=== PATIENT | female | born 1995 | race Caucasian/White ===

== ENCOUNTER → 2017-05-20 | Outpatient (CLI) | payer BC, OTHER ==
[2017-05-22 01:58] LABS: CHLAMYDIA TRACH RNA*** NOT DETECTED (NOT DETECTED); GC (NEIS GONORRHOEAE)RNA** NOT DETECTED (NOT DETECTED)
== END | disposition home or self-care (01) ==
LOC: C.LABSPEC 10:43
PROVIDERS: ATTEND Physician Assistant
DX: Z01.419 Encounter for gynecological examination (general) (routine) without abnormal findings (principal)

== ENCOUNTER 2018-01-25 18:06 | Emergency (ER) | payer OTHER ==
[~2018-01-25] VITALS: Ht 172.7 cm; Wt 62.8 kg
[2018-01-25 18:15] VITALS: Ht 172.7 cm; Wt 62.8 kg
[2018-01-25] MEDS ORDERED: ACETAMINOPHEN 500 MG TAB PO STA (19:46)
[2018-01-25] MEDS ORDERED: SODIUM CHLORIDE 0.9% 1000ML 1,000 ML IV STA (19:46)
--- NOTE | 2018-01-25 20:03 | DIAGNOSTIC IMAGING REPORT ---
CHEST ONE VIEW PORTABLE CLINICAL HISTORY: Weakness COMPARISON STUDY: No previous studies for comparison. FINDINGS: The cardiac and mediastinal contours are normal. There is no evidence of focal pulmonary consolidation. There is no evidence of failure. No pleural effusions are visualized.[ IMPRESSION: No active disease in the chest. Electronically signed by: Ivan Shah M.D. 01/25/2018 8:02 PM Dictated Date/Time: 01/25/2018 8:01 PM
[2018-01-25 20:33] LABS: HEMATOCRIT 45.2 % (37-47); HEMOGLOBIN 15.8 g/dL (12.0-16.0); WHITE BLOOD COUNT 6.47 K/uL (4.8-10.8)
[2018-01-25 20:34] LABS: BASO % 0.2 %; BASO ABS # 0.01 K/uL (0-0.2); EOS % 0.3 %; EOS ABS # 0.02 K/uL (0-0.5); IG# 0.03 K/uL (0.00-0.02); LYMPH % 5.3 %; LYMPH ABS # 0.34 K/uL (1.2-3.4); MEAN CELL VOLUME 84.6 fL (80-100); MEAN CORPUSCULAR HEMOGLOBIN 29.6 pg (25-34); MEAN PLATELET VOLUME 10.1 fL (7.4-10.4); MONO % 4.2 %; MONO ABS # 0.27 K/uL (0.11-0.59); NEUT % 89.5 %; PLATELET COUNT 194 K/uL (130-400); RED CELL DISTRIBUTION WIDTH CV 14.6 % (11.5-14.5); RED CELL DISTRIBUTION WIDTH SD 45.1 fL (36.4-46.3)
[2018-01-25 20:54] LABS: ALBUMIN 4.9 gm/dl (3.4-5.0); CALCIUM 9.5 mg/dl (8.5-10.1); CREATININE 1.02 mg/dl (0.60-1.20); POTASSIUM 3.3 mmol/L (3.5-5.1)
[2018-01-25 21:05] LABS: TOTAL PROTEIN 9.4 gm/dl (6.4-8.2)
[2018-01-25 21:14] LABS: INFLUENZA B ANTIGEN Neg for Influ B (NEG)
[2018-01-25 21:32] VITALS: BP 121/70; PULSE 72; O2SAT 97
[2018-01-25 21:46] VITALS: TEMP 37.4
--- NOTE | 2018-01-25 23:02 | EMERGENCY ROOM VISIT NOTE ---
History Report prepared by Lisa: Laura West Under the Supervision of: Dr. Phil Edmondson M.D. First contact with patient: 19:25 Chief Complaint: ILLNESS Stated Complaint: NUMB HANDS, EYES HURT VERY BAD, COLD,WEAK History of Present Illness The patient is a 22 year old female who presents to the Emergency Room with complaints of worsening generalized illness beginning yesterday. She reports eye pain, cough, chills, numbness in her hands, body aches, sorethroat, and nausea. The patient was diagnosed with MAC in her lungs by infectious diseases in [place] about a week and a half ago. The patient reports she was started on Zithromax, Rifabutan, and Ethambutol a week and a half ago. The patient reports she typically gets the flu every flu season. Pt denies LOC, headache, fevers, diaphoresis, visual changes, neck pain, chest pain, breathing difficulties, vomiting, abdominal pain, back pain, melena, hematochezia, urinary symptoms, weakness, lymphadenopathy, rash, or other complaints. Source of History: patient Onset: yesterday Position: other (generalized) Quality: other (illness) Timing: worsening Associated Symptoms: + chills, + sorethroat, + cough, + nausea, + numbness Review of Systems See HPI for pertinent positives and negatives. A total of ten systems were reviewed and were otherwise negative. Past Medical & Surgical Medical Problems: (1) Mycobacterium avium infection Social History Smoking Status: Never Smoker Marital Status: single Occupation Status: employed Allergies Coded Allergies: Oxycodone (Verified Allergy, Unknown, syncope, 01/25/18) Physical Exam Vital Signs Date Time Temp Pulse Resp B/P (MAP) Pulse Ox O2 Delivery O2 Flow Rate FiO2 01/25/18 21:46 37.4 01/25/18 21:32 36.9 72 121/70 97 Room Air 01/25/18 18:15 37.8 148 22 143/82 97 Room Air Physical Exam GENERAL: Awake, alert, mildly ill appearing, no distress HEAD: Normocephalic, atraumatic. No edema. EYES: Normal conjunctiva. Sclera non-icteric. EARS: Right TM normal. Left TM normal. NOSE: Mild congestion. OROPHARYNX: Lips, tongue, and mucosa unremarkable. No erythema or exudate. NECK: Supple. No nuchal rigidity. FROM. No adenopathy. Negative jolt accentuation test. RESPIRATORY: CTA bilaterally. No wheezes rales or rhonchi. Normal respiratory effort. CARDIAC: Borderline tachycardic rate. Normal rhythm. No murmurs. No rubs. GI: Soft, non distended. No tenderness to palpation. NEURO: Normal sensorium. Normal speech. SKIN: No rash or jaundice noted. Medical Decision & Procedures ER Provider Diagnostic Interpretation: Radiology results as stated below per my review and radiologist interpretation: CHEST ONE VIEW PORTABLE FINDINGS: The cardiac and mediastinal contours are normal. There is no evidence of focal pulmonary consolidation. There is no evidence of failure. No pleural effusions are visualized.[ IMPRESSION: No active disease in the chest. Electronically signed by: Ivan Shah M.D. Laboratory Results 01/25/18 20:00 Red Blood Count 5.34, Mean Corpuscular Volume 84.6, Mean Corpuscular Hemoglobin 29.6, Mean Corpuscular Hemoglobin Concent 35.0, Mean Platelet Volume 10.1, Neutrophils (%) (Auto) 89.5, Lymphocytes (%) (Auto) 5.3, Monocytes (%) (Auto) 4.2, Eosinophils (%) (Auto) 0.3, Basophils (%) (Auto) 0.2, Neutrophils # (Auto) 5.80, Lymphocytes # (Auto) 0.34, Monocytes # (Auto) 0.27, Eosinophils # (Auto) 0.02, Basophils # (Auto) 0.01 01/25/18 20:00 Test 01/25/18 19:50 01/25/18 19:58 01/25/18 20:00 Influenza Type A Antigen Neg for Influ A (NEG) Influenza Type B Antigen Neg for Influ B (NEG) Urine Color ORANGE Urine Appearance CLEAR (CLEAR) Urine pH 7.5 (4.5-7.5) Urine Specific [place] 1.017 (1.000-1.030) Urine Protein NEG (NEG) Urine Glucose (UA) NEG (NEG) Urine Ketones 2+ (NEG) Urine Occult Blood NEG (NEG) Urine Nitrite NEG (NEG) Urine Bilirubin NEG (NEG) Urine Urobilinogen NEG (NEG) Urine Leukocyte Esterase NEG (NEG) White Blood Count 6.47 K/uL (4.8-10.8) Red Blood Count 5.34 M/uL (4.2-5.4) Hemoglobin 15.8 g/dL (12.0-16.0) Hematocrit 45.2 % (37-47) Mean Corpuscular Volume 84.6 fL (80-100) Mean Corpuscular Hemoglobin 29.6 pg (25-34) Mean Corpuscular Hemoglobin Concent 35.0 g/dl (32-36) Platelet Count 194 K/uL (130-400) Mean Platelet Volume 10.1 fL (7.4-10.4) Neutrophils (%) (Auto) 89.5 % Lymphocytes (%) (Auto) 5.3 % Monocytes (%) (Auto) 4.2 % Eosinophils (%) (Auto) 0.3 % Basophils (%) (Auto) 0.2 % Neutrophils # (Auto) 5.80 K/uL (1.4-6.5) Lymphocytes # (Auto) 0.34 K/uL (1.2-3.4) Monocytes # (Auto) 0.27 K/uL (0.11-0.59) Eosinophils # (Auto) 0.02 K/uL (0-0.5) Basophils # (Auto) 0.01 K/uL (0-0.2) RDW Standard Deviation 45.1 fL (36.4-46.3) RDW Coefficient of Variation 14.6 % (11.5-14.5) Immature Granulocyte % (Auto) 0.5 % Immature Granulocyte # (Auto) 0.03 K/uL (0.00-0.02) Anion Gap 6.0 mmol/L (3-11) Est Creatinine Clear Calc Drug Dose 85.0 ml/min Estimated GFR () 89.8 Estimated GFR (Non- 77.5 BUN/Creatinine Ratio 6.5 (10-20) Calcium Level 9.5 mg/dl (8.5-10.1) Magnesium Level 1.7 mg/dl (1.8-2.4) Total Bilirubin 0.4 mg/dl (0.2-1) Direct Bilirubin 0.1 mg/dl (0-0.2) Aspartate Amino Transf (AST/SGOT) 16 U/L (15-37) Alanine Aminotransferase (ALT/SGPT) 21 U/L (12-78) Alkaline Phosphatase 75 U/L (45-117) Total Protein 9.4 gm/dl (6.4-8.2) Albumin 4.9 gm/dl (3.4-5.0) Lipase 212 U/L (73-393) Thyroid Stimulating Hormone (TSH) 1.010 uIu/ml (0.300-4.500) Laboratory results reviewed by me Medications Administered Medications (Trade) Dose Ordered Sig/Daniel Route Start Time Stop Time Status Last Admin Dose Admin Sodium Chloride 1,000 ml @ 999 mls/hr Q1H1M STAT IV 01/25/18 19:46 01/25/18 20:46 DC 01/25/18 20:09 999 MLS/HR Acetaminophen (Tylenol Tab) 1,000 mg NOW STAT PO 01/25/18 19:46 01/25/18 19:49 DC 01/25/18 20:04 1,000 MG ED Course 1944: The patient was evaluated in room B7. A complete history and physical exam was performed. 1945: Ordered Acetaminophen 1,000 mg PO, Sodium Chloride 1000 ml @ 999 mls/hr IV. 2128: I updated the patient on her test results. She is feeling much better. She was in contact with her physician from [place] who recommended she stop her MAC antibiotics. 2143: I reevaluated the patient. Discussed results and discharge instructions: She verbalized understanding and agreement. The patient is ready for discharge. Medical Decision Triage Nursing notes reviewed and agree them. The patient's history was concerning for flulike symptoms. Differential diagnosis: Etiologies such as viral syndrome, influenza,otitis, pharyngitis, pneumonia, meningitis, urinary tract infection, sepsis, bacteremia, complication of her medications, as well as others were entertained. Physical examination: As above. ER treatment provided: Tylenol Saline hydration On reassessment the patient felt better. Diagnostics interpreted by me: The labs revealed an unremarkable CBC and chemistry panel. Flu testing negative. Urinalysis negative. Imaging studies: Chest x-ray negative as above. The patient is doing very well at this time. Her vital signs are improved. Clinically she feels much better. She was in contact with her infectious disease physician who recommended that she stop her antibiotics. She will follow-up with them as an outpatient. I suspect a viral syndrome given her symptoms and the fact that she was on multiple antibiotics. It is possible that she was feeling ill secondary to her antibiotics. She did not have any diarrhea. She had no rash or symptoms to suggest allergic reaction. By the evaluation outlined above emergent etiologies such as otitis, pharyngitis, pneumonia, meningitis, urinary tract infection, sepsis, bacteremia , as well as others were deemed relatively unlikely. The patient was informed about the findings as listed above. All questions were answered and she will pleased with the treatment. Return instructions were outlined and the patient was discharged in stable condition. Medication Reconcilliation Current Medication List: was personally reviewed by me Blood Pressure Screening Patient's blood pressure: Normal blood pressure Impression Primary Impression: Flu-like symptoms Scribe Attestation The scribe's documentation has been prepared under my direction and personally reviewed by me in its entirety. I confirm that the note above accurately reflects all work, treatment, procedures, and medical decision making performed by me. Departure Information Dispostion Home / Self-Care Referrals No Doctor, Assigned (PCP) Forms HOME CARE DOCUMENTATION FORM, IMPORTANT VISIT INFORMATION, WORK / SCHOOL INSTRUCTIONS Patient Instructions My [facility] Additional Instructions Hold your current antibiotics until directed otherwise by your infectious disease specialist. Contact her office tomorrow. Acetaminophen(Tylenol) may be used for fever or pain. Use 1000mg every six hours as needed. Avoid using more than 4000mg in a 24 hour period. (AND/OR) Ibuprofen(Motrin, Advil) may be used for fever or pain. Use 600mg every six hours as needed. Take with food. Avoid using more than 2400mg in a 24 hour period. Do not use 2400mg per day for more than three consecutive days without physician direction. Prolonged inappropriate use can lead to stomach upset or ulcers. Rest and drink plenty of fluids. Controlling your fever with Tylenol and Ibuprofen as above will make you feel better. Wash your hands after nose blowing, sneezing, or coughing. Most germs are spread through contact, therefore improper hygiene may result in your close contacts and loved ones becoming ill just like you. Return to the ER for severe headache, neck stiffness, chest pain, difficulty breathing, fevers, vomiting, worsening of your condition, or as needed. Follow up with your primary physician this week for a recheck of your current condition.
== END 2018-01-25 21:47 | disposition home or self-care (01) ==
LOC: C.EDB 18:07
DX: H57.13 Ocular pain, bilateral (principal); R11.0 Nausea; R20.0 Anesthesia of skin; R05 Cough; R68.83 Chills (without fever); J02.9 Acute pharyngitis, unspecified; R69 Illness, unspecified